=== PATIENT | male | born 1935 | race Caucasian/White ===

== ENCOUNTER 2021-10-27 17:57 | Emergency (ER) | payer OTHER, MEDICARE ==
[2021-10-27] MEDS ORDERED: traMADol 50 MG Tab PO ONE ×2 (17:58→18:36)
--- NOTE | 2021-10-27 18:42 | EDM.PDOC ---
ED HPI GENERAL MEDICAL PROBLEM - General Chief Complaint: General Stated Complaint: NECK PAIN Time Seen by Provider: 10/27/21 18:25 Source of Information: Reports: Patient - History of Present Illness INITIAL COMMENTS - FREE TEXT/NARRATIVE: 86-year-old gentleman with a chronic history of cervical and upper thoracic neck pain treated previously with chiropractic evaluation and treatment came to the emergency room because of acute increase in neck pain. He states that he was using a resistance band to try to exercise and had acute pain and points to an area between T1 and T2. He states the pain radiates superiorly up the left side of his neck to his left ear. He has not had fever, chills, chest pain, shortness of breath, change in bowel or bladder habits. However, he does have multiple comorbidities and is on dialysis. His next dialysis is scheduled for tomorrow. Neck Pain Score (Numeric/FACES): 5 - Related Data Allergies Allergy/AdvReac Type Severity Reaction Status Date / Time codeine Allergy Disorientat Verified 10/27/21 18:53 ion pneumococcal vaccine Allergy Hives Verified 09/13/13 09:35 [Pneumococcal Vaccine] Home Meds: Home Meds Chlorpheniramine Maleate [Allergy] 1 - 2 tab PO DAILY PRN 09/13/13 [History] Lanthanum Carbonate [Fosrenol] 750 mg PO TID 09/13/13 [History] Levothyroxine Sodium [Levothroid] 25 mcg PO DAILY 09/13/13 [History] Sevelamer Carbonate [Renvela] 800 mg PO TID 09/13/13 [History] Simvastatin [Zocor] 10 mg PO BEDTIME 09/13/13 [History] Vit B Cplx C No.13/Folic AC/D3 [Nephrocaps Qt Tablet] 1 each PO DAILY 09/13/13 [History] Vit D3/Folic Acid/B2/B6/B12 [Folgard Tablet] 2,000 units PO DAILY 09/13/13 [History] ED ROS GENERAL - Review of Systems Review Of Systems: See Below Constitutional: Reports: No Symptoms HEENT: Reports: No Symptoms Respiratory: Reports: No Symptoms Cardiovascular: Reports: No Symptoms Endocrine: Reports: No Symptoms GI/Abdominal: Reports: No Symptoms : Reports: No Symptoms Musculoskeletal: Reports: Neck Pain, Shoulder Pain, Back Pain, Muscle Pain, Muscle Stiffness Skin: Reports: No Symptoms Neurological: Reports: No Symptoms Psychiatric: Reports: No Symptoms Hematologic/Lymphatic: Reports: No Symptoms Immunologic: Reports: No Symptoms ED EXAM, GENERAL - Physical Exam Exam: See Below Free Text/Narrative:: Inspection of the cervical and thoracic spine shows thoracic kyphosis with protrusion of T1, there is no acute lesion, swelling, edema, ecchymosis. Range of motion testing of the neck shows reduced range of motion in all planes. Patient has increased pain with active range of motion testing in all planes. The worst increase in pain is with extension, side bending to the left, and rotation to the right. Exam Limited By: No Limitations General Appearance: Alert, Anxious Head: Atraumatic, Normocephalic Respiratory/Chest: No Respiratory Distress, Crackles Cardiovascular: Regular Rate, Rhythm GI/Abdominal: Normal Bowel Sounds Back Exam: Vertebral Tenderness Extremities: Pedal Edema Neurological: Alert, Oriented, Normal Cognition Psychiatric: Anxious Skin Exam: Warm, Dry, Ecchymosis Course - Vital Signs Text/Narrative:: Patient's neck pain is acute on chronic. Review of x-ray shows no obvious acute abnormality but I will follow up with radiology results when available. Patient was given tramadol, 50 mg and had good relief from pain. Last Recorded V/S: Last Vital Signs Temp 36.4 C 10/27/21 18:00 Pulse 81 10/27/21 18:00 Resp 18 10/27/21 18:00 BP 127/67 10/27/21 18:00 Pulse Ox 100 10/27/21 18:00 - Orders/Labs/Meds Orders: Active Orders 24 hr Category Date Time Status Thoracic Spine 3V [CR] Stat Exams 10/27/21 18:37 Taken Meds: Medications Discontinued Medications Generic Name Dose Route Start Last Admin Trade Name Freq PRN Reason Stop Dose Admin Tramadol HCl 50 mg 10/27/21 18:36 10/27/21 19:28 Tramadol 50 Mg Tab PO 10/27/21 18:37 50 mg ONETIME ONE Administration Departure - Departure Time of Disposition: 20:41 Disposition: Home, Self-Care 01 Condition: Fair Clinical Impression: Neck muscle strain - Discharge Information *PRESCRIPTION DRUG MONITORING PROGRAM REVIEWED*: Not Applicable *COPY OF PRESCRIPTION DRUG MONITORING REPORT IN PATIENT ALEX: Not Applicable Instructions: Muscle Strain, [id number], Cervical Strain and Sprain Rehab-Spo rtsMed Referrals: Negrita Christensen NP [Primary Care Provider] - Forms: ED Department Discharge Additional Instructions: Patient will be sent home with 4, 50 mg tramadol. Patient instructed to use 150 mg tramadol every 12 hours as needed for pain and to follow-up with his primary care physician. Sepsis Event Note (ED) - Focused Exam Vital Signs: Vital Signs Temp Pulse Resp BP Pulse Ox 10/27/21 18:00 36.4 C 81 18 127/67 100 - My Orders Last 24 Hours: My Active Orders 10/27/21 18:37 Thoracic Spine 3V [CR] Stat - Assessment/Plan Last 24 Hours: My Active Orders 10/27/21 18:37 Thoracic Spine 3V [CR] Stat
[2021-10-27] MEDS ORDERED: Acetaminophen 500 MG Tab PO ONE (20:51)
[2021-10-27 23:28] VITALS: BP 130/82; PULSE 87
== END 2021-10-27 20:58 | disposition home or self-care (01) ==
LOC: FB.ED 17:57
DX: S16.1XXA Strain of muscle, fascia and tendon at neck level, initial encounter (principal); Z88.5 Allergy status to narcotic agent; Z88.7 Allergy status to serum and vaccine; Z79.899 Other long term (current) drug therapy; X50.0XXA Overexertion from strenuous movement or load, initial encounter
CPT/HCPCS: 72072; 99283-25; A9270-GY

== ENCOUNTER 2022-10-02 21:40 | Emergency (ER) | payer OTHER, MEDICARE ==
[2022-10-02] MEDS ORDERED: Sodium Phosphate,Monobasic/Sodium Phosphate,Dibasic Enema 133 ML Bottle RECTAL ONE (21:55)
[2022-10-02] MEDS ORDERED: Sodium Chloride 0.9% 10 ML Syringe FLUSH PRN (21:55)
[2022-10-02 22:17] VITALS: BP 140/77; PULSE 92
[2022-10-02 22:30] LABS: ESTIMATED GFR 11 mL/min (>60)
[2022-10-02] MEDS ORDERED: fentaNYL 100 MCG/2 ML SDV IVPUSH ONE (22:55)
[2022-10-02] MEDS ORDERED: Ondansetron 4 MG/2 ML SDV IVPUSH ONE (22:55)
== END 2022-10-03 00:10 ==
LOC: FB.ED 21:40
DX: K56.699 Other intestinal obstruction unspecified as to partial versus complete obstruction (principal); Z88.5 Allergy status to narcotic agent; Z88.7 Allergy status to serum and vaccine; Z79.899 Other long term (current) drug therapy; Z20.822 Contact with and (suspected) exposure to COVID-19
CPT/HCPCS: 36415; 74018; 74176; 80053; 83690; 85025; 87635; 96374; 96375; 99285; J2405; J3010; J3490; U0002

== ENCOUNTER 2022-11-09 05:17 | Emergency (ER) | payer OTHER, MEDICARE ==
[2022-11-09 06:05] VITALS: BP 124/56; PULSE 90
[2022-11-09 06:13] LABS: ESTIMATED GFR 11 mL/min (>60)
[2022-11-09] MEDS ORDERED: Ondansetron 4 MG/2 ML SDV IM ONE (06:25)
[2022-11-09] MEDS ORDERED: Morphine 4 MG/ML VIAL IM ONE (06:25)
[2022-11-09 08:16] LABS: CORONAVIRUS COVID-19 NAA NEGATIVE (NEGATIVE)
== END 2022-11-09 10:25 ==
LOC: FB.ED 05:17
DX: K56.609 Unspecified intestinal obstruction, unspecified as to partial versus complete obstruction (principal); I48.91 Unspecified atrial fibrillation; N18.6 End stage renal disease; I50.9 Heart failure, unspecified; Z99.2 Dependence on renal dialysis; Z88.5 Allergy status to narcotic agent; Z88.7 Allergy status to serum and vaccine; Z79.899 Other long term (current) drug therapy; Z79.01 Long term (current) use of anticoagulants; Z20.822 Contact with and (suspected) exposure to COVID-19
CPT/HCPCS: 0241U; 36415; 74018; 74176; 80053; 83605; 85025; 85610; 96372; 99285; J2270; J2405